=== PATIENT | male | born 1970 | race African-American/Black ===

== ENCOUNTER 2017-09-25 18:17 | Emergency (ER) | payer OTHER ==
[~2017-09-25] VITALS: Ht 188 cm; Wt 95.3 kg
[2017-09-25 19:04] LABS: HEMATOCRIT 47.7 % (38.0-50.0); MCH 29.9 PG (29.0-34.0); MCHC 33.5 G/DL (30.0-36.0); PLATELET COUNT 214 K/uL (156-360); RBC DIS.WIDTH-CV 13.7 % (11.8-14.6); RBC DIS.WIDTH-SD 44.2 % (39-53); RED BLOOD COUNT 5.36 M/uL (4.00-5.50)
[2017-09-25 19:12] LABS: CHLORIDE 106 mEq/L (99-109); POTASSIUM 3.7 mEq/L (3.7-5.4); SODIUM 140 mEq/L (136-147)
[2017-09-25 19:14] LABS: GLUCOSE 117 mg/dL (70-99)
[2017-09-25 19:18] LABS: CREATININE 1.3 mg/dL (0.6-1.3)
[2017-09-25 19:19] LABS: GFR ESTIMATE (CALCULATED) > 59 mL/min/ (58.99-99999); UREA NITROGEN (BUN) 19 mg/dL (9-23)
[2017-09-25] MEDS ORDERED: VENTOLIN HFA18 GM IH (20:48)
[2017-09-25 21:26] LABS: APPEARANCE SL.HAZY ((CLEAR)); BILIRUBIN NEGATIVE; BLOOD SMALL; COLOR YELLOW ((YELLOW)); GLUCOSE (STRIP) NEGATIVE; KETONES NEGATIVE; LEUKOCYTES NEGATIVE; NITRITE NEGATIVE; PROTEIN (STRIP) 30; UROBILINOGEN 0.2 MG/DL (0.2-1.0)
[2017-09-25 21:28] LABS: BACTERIA NONE SEEN /HPF; CALCIUM OXALATE CRYSTALS 1+ /HPF; EPITHELIAL CELLS NONE SEEN /HPF; MUCUS TRACE /LPF; UCUL ADDED? NO; WHITE BLOOD CELLS 0-5 /HPF (0-5)
[2017-09-25] MEDS ORDERED: ULTRAM50 MG PO (22:04)
[2017-09-25 22:21] VITALS: BP 116/92
== END 2017-09-25 22:22 | disposition home or self-care (01) ==
LOC: EME 18:17
DX: J90 Pleural effusion, not elsewhere classified (principal); J06.9 Acute upper respiratory infection, unspecified; R11.2 Nausea with vomiting, unspecified; R42 Dizziness and giddiness; R19.7 Diarrhea, unspecified; F17.210 Nicotine dependence, cigarettes, uncomplicated
CPT/HCPCS: 71046; 74018; 80048; 81003; 85027; 94640; 99281; 99284